=== PATIENT | male | born 1940 | race Caucasian/White ===

== ENCOUNTER 2023-01-28 04:14 | Inpatient (IN) | payer OTHER ==
[~2023-01-28] VITALS: Ht 165.1 cm; Wt 90.0 kg
[2023-01-28] MEDS ORDERED: SODIUM CHLORIDE 0.9% 1,000 ML IV ONE (04:30)
[2023-01-28 05:06] LABS: Basophils # (auto) 0 10 ^3/uL (0-0.2); Basophils % (auto) 0.1 % (0.0-2.0); Eosinophils # (auto) 0 10 ^3/uL (0-0.8); Eosinophils % (auto) 0.3 % (0.0-7.0); Hematocrit 40.6 % (41.0-53.0); Hemoglobin 13.6 g/dL (13.5-17.5); Lymphocytes % (auto) 10.9 % (10.0-50.0); Mean Corpuscular Hemoglobin 28.5 pg (28.0-32.0); Mean Corpuscular Hgb Conc. 33.5 g/dL (32.0-36.0); Monocytes # (auto) 0.6 10 ^3/uL (0-1.3); Monocytes % (auto) 6.1 % (0.0-12.0); Neutrophils # (auto) 7.4 10 ^3/uL (1.6-8.6); Neutrophils % (auto) 82.6 % (37.0-80.0); Nucleated Red Blood Cells % 0.1 %; Red Blood Cells 4.77 10^6/uL (4.5-5.90); Red Cell Distribution Width 18.5 % (11.8-14.3)
[2023-01-28 05:14] LABS: INR 1.14 (0.9-1.15); Partial Thromboplastin Time 36.7 SEC (24.5-34.5)
[2023-01-28] MEDS ORDERED: PANTOPRAZOLE 80 MG in SODIUM CHL 0.9% 100 ML IV ONE (05:15)
[2023-01-28] MEDS: OCTREOTIDE ACETATE 500 MCG in SODIUM CHL 0.9% 99 ML IV SCH ×2 (05:15→15:15)
[2023-01-28] MEDS ORDERED: PANTOPRAZOLE 40mg/50ML NS AE 50 ML IV ONE ×2 (05:15→11:14)
[2023-01-28] MEDS ORDERED: OCTREOTIDE ACETATE 100 MCG in SODIUM CHL 0.9% 50 ML IV ONE (05:15)
[2023-01-28 05:17] LABS: Albumin 3.1 g/dL (3.4-5.0); Calcium 8.7 mg/dL (8.5-10.1); Magnesium 2.7 mg/dL (1.6-2.6)
[2023-01-28 05:20] LABS: BUN/Creatinine Ratio 37.4 (10.0-20.0); Bilirubin, Total 1.6 mg/dL (0.2-1.0); Total Protein 6.6 g/dL (6.4-8.2)
[2023-01-28] MEDS ORDERED: levoFLOXacin 500MG 100 ML IV ONE (05:30)
[2023-01-28] MEDS ORDERED: PANTOPRAZOLE 40 MG/10 ML VIAL INJ IV ONE (05:45)
[2023-01-28] MEDS: NOREPINEPHRINE 8 MG/250ML KIT 250 ML IV SCH (05:45)
[2023-01-28] MEDS ORDERED: OCTREOTIDE ACETATE 500 MCG/ML VL ONE (05:45)
[2023-01-28] MEDS ORDERED: OCTREOTIDE ACETATE 100 MCG/ML VL ONE (05:45)
[2023-01-28 06:49] LABS: Lactic Acid w/Reflex 2.6 mmol/L (0.4-2.0)
[2023-01-28 07:40] VITALS: O2SAT 100
[2023-01-28 07:44] VITALS: PULSE 121; RESP 18; O2SAT 100
[2023-01-28] MEDS ORDERED: ONDANSETRON HCL 4 MG/2 ML VIAL IV PRN (09:45)
[2023-01-28] MEDS ORDERED: MORPHINE SULFATE INJ 2 MG/ml SYRG IV PRN (09:45)
[2023-01-28] MEDS ORDERED: NITROGLYCERIN 0.4 MG SL TAB SL PRN (09:45)
[2023-01-28] MEDS ORDERED: DOCUSATE SOD 100 MG CAP PO PRN (09:45)
[2023-01-28] MEDS ORDERED: FURO40TA4 PO (10:30)
[2023-01-28] MEDS ORDERED: [UNRECOGNIZED DRUG - CODE] PO (10:30)
[2023-01-28] MEDS ORDERED: FIN5T PO (10:30)
[2023-01-28] MEDS ORDERED: APIX2.5T PO (10:30)
[2023-01-28] MEDS ORDERED: ATOR10TA52 PO (10:30)
[2023-01-28] MEDS ORDERED: LISI20TA56 PO (10:30)
[2023-01-28] MEDS ORDERED: DOX2T PO (10:30)
[2023-01-28] MEDS: PANTOPRAZOLE 40mg/50ML NS AE 50 ML IV SCH ×3 (11:29→20:21)
[2023-01-28 12:57] LABS: Calcium 8.7 mg/dL (8.5-10.1)
[2023-01-28 13:01] LABS: BUN/Creatinine Ratio 38.3 (10.0-20.0)
[2023-01-28] MEDS ORDERED: CARBIDOPA LEVODOPA ENTACAPONE PO SCH (14:00)
[2023-01-28] MEDS: SODIUM CHLOR 0.9% PF (SALINE LOCK) 10ML VIAL/SYR IV SCH ×2 (14:02→22:12)
[2023-01-28 17:02] LABS: Urine Bacteria NONE SEEN /hpf (None Seen); Urine Blood 3+ /uL (Negative); Urine Specific Gravity 1.012 (1.001-1.035); Urine WBC 17 /hpf (0 - 3)
[2023-01-28] MEDS: SODIUM CHLORIDE 0.9% 1,000 ML IV SCH (17:26)
[2023-01-28] MEDS: TAMSULOSIN HYDROCHLORIDE 0.4 MG CAP PO SCH (18:16)
[2023-01-28] MEDS: CARBIDOPA W LEVODOPA CR 25/100mg TABLET PO SCH (22:27)
[2023-01-29] VITALS (7 sets, daily range): BP systolic 108–131; BP diastolic 55–67; PULSE 79–93; RESP 15–24; TEMP 97.5–98.9; O2SAT 95–100
[2023-01-29] MEDS ORDERED: OCTREOTIDE ACETATE 500 MCG/ML VL ONE (00:25)
[2023-01-29] MEDS: OCTREOTIDE ACETATE 500 MCG in SODIUM CHL 0.9% 99 ML IV SCH ×3 (00:37→23:33)
[2023-01-29] MEDS: PANTOPRAZOLE 40mg/50ML NS AE 50 ML IV SCH ×5 (01:20→23:36)
[2023-01-29] MEDS: SODIUM CHLORIDE 0.9% 1,000 ML IV SCH ×3 (03:29→23:36)
[2023-01-29] MEDS: NOREPINEPHRINE 8 MG/250ML KIT 250 ML IV SCH (04:45)
[2023-01-29 05:44] LABS: Basophils # (auto) 0 10 ^3/uL (0-0.2); Basophils % (auto) 0.3 % (0.0-2.0); Eosinophils # (auto) 0.1 10 ^3/uL (0-0.8); Eosinophils % (auto) 0.7 % (0.0-7.0); Hematocrit 38.7 % (41.0-53.0); Hemoglobin 12.9 g/dL (13.5-17.5); Lymphocytes % (auto) 11.5 % (10.0-50.0); Mean Corpuscular Hemoglobin 28.7 pg (28.0-32.0); Mean Corpuscular Hgb Conc. 33.4 g/dL (32.0-36.0); Mean Corpuscular Volume 85.8 fL (80.0-100.0); Monocytes # (auto) 0.8 10 ^3/uL (0-1.3); Monocytes % (auto) 9.3 % (0.0-12.0); Neutrophils # (auto) 7.1 10 ^3/uL (1.6-8.6); Neutrophils % (auto) 78.2 % (37.0-80.0); Nucleated Red Blood Cells % 0.1 %; Red Blood Cells 4.51 10^6/uL (4.5-5.90); Red Cell Distribution Width 18.5 % (11.8-14.3)
[2023-01-29] MEDS: CARBIDOPA W LEVODOPA CR 25/100mg TABLET PO SCH ×3 (06:00→22:00)
[2023-01-29] MEDS: SODIUM CHLOR 0.9% PF (SALINE LOCK) 10ML VIAL/SYR IV SCH ×3 (06:03→23:33)
[2023-01-29 06:05] LABS: Potassium 4.4 mmol/L (3.5-5.1)
[2023-01-29 06:16] LABS: Albumin 2.8 g/dL (3.4-5.0); BUN/Creatinine Ratio 34.9 (10.0-20.0); Bilirubin, Total 1.9 mg/dL (0.2-1.0); Calcium 8.4 mg/dL (8.5-10.1); Magnesium 2.5 mg/dL (1.6-2.6); Total Protein 6.1 g/dL (6.4-8.2)
[2023-01-29] MEDS: cefTRIAXone 1GM/50ML D5W 50 ML IV SCH (08:51)
[2023-01-29] MEDS: FINASTERIDE 5 MG TAB PO SCH (08:51)
[2023-01-29] MEDS: ATORVASTATIN 20 MG TAB PO SCH (08:52)
[2023-01-29] MEDS: TAMSULOSIN HYDROCHLORIDE 0.4 MG CAP PO SCH (18:22)
[2023-01-29] MEDS ORDERED: ZINC SULFATE 220mg CAP or TAB PO ONE (20:45)
[2023-01-29] MEDS ORDERED: CHOLECALCIFEROL (VITD3) 2,000 UNIT CAP/TAB PO ONE (20:45)
[2023-01-30] VITALS (7 sets, daily range): BP systolic 111–122; BP diastolic 63–74; PULSE 74–81; RESP 17–22; TEMP 97.1–98.8; O2SAT 94–98
[2023-01-30] MEDS: CARBIDOPA W LEVODOPA CR 25/100mg TABLET PO SCH ×3 (06:00→22:00)
[2023-01-30 06:07] LABS: Basophils # (auto) 0 10 ^3/uL (0-0.2); Basophils % (auto) 0.4 % (0.0-2.0); Eosinophils # (auto) 0.2 10 ^3/uL (0-0.8); Eosinophils % (auto) 2.6 % (0.0-7.0); Lymphocytes % (auto) 13.9 % (10.0-50.0); Mean Corpuscular Hemoglobin 28.1 pg (28.0-32.0); Mean Corpuscular Hgb Conc. 33.4 g/dL (32.0-36.0); Mean Corpuscular Volume 84.3 fL (80.0-100.0); Monocytes # (auto) 0.6 10 ^3/uL (0-1.3); Monocytes % (auto) 8.4 % (0.0-12.0); Neutrophils # (auto) 5.6 10 ^3/uL (1.6-8.6); Neutrophils % (auto) 74.7 % (37.0-80.0); Red Blood Cells 4.63 10^6/uL (4.5-5.90); Red Cell Distribution Width 18.2 % (11.8-14.3); White Blood Cell 7.5 10^3/uL (4.4-10.8)
[2023-01-30] MEDS: PANTOPRAZOLE 40mg/50ML NS AE 50 ML IV SCH (06:51)
[2023-01-30] MEDS: SODIUM CHLOR 0.9% PF (SALINE LOCK) 10ML VIAL/SYR IV SCH ×3 (06:51→22:45)
[2023-01-30] MEDS: OCTREOTIDE ACETATE 500 MCG in SODIUM CHL 0.9% 99 ML IV SCH (06:52)
[2023-01-30] MEDS: ZINC SULFATE 220mg CAP or TAB PO SCH (09:29)
[2023-01-30] MEDS: CHOLECALCIFEROL (VITD3) 2,000 UNIT CAP/TAB PO SCH (09:30)
[2023-01-30] MEDS: ATORVASTATIN 20 MG TAB PO SCH (09:30)
[2023-01-30] MEDS: cefTRIAXone 1GM/50ML D5W 50 ML IV SCH (09:32)
[2023-01-30] MEDS: SODIUM CHLORIDE 0.9% 1,000 ML IV SCH ×3 (09:32→23:04)
[2023-01-30] MEDS: FINASTERIDE 5 MG TAB PO SCH (09:32)
[2023-01-30 09:35] LABS: Potassium 4.1 mmol/L (3.5-5.1)
[2023-01-30 09:39] LABS: Calcium 7.9 mg/dL (8.5-10.1); Magnesium 2.1 mg/dL (1.6-2.6)
[2023-01-30 11:51] LABS: Hepatitis B Surface Antibody Negative (Negative)
[2023-01-30 12:14] LABS: Hepatitis A Total Antibody Positive (Negative)
[2023-01-30 12:48] LABS: Hepatitis C Antibody Negative (Negative)
[2023-01-30] MEDS: DexAMETHasone SOD PHOS 10MG/1ML VIAL INJ IV SCH (14:02)
[2023-01-30] MEDS: AZITHROMYCIN 500MG/ 250ML 250 ML IV SCH (14:02)
[2023-01-30] MEDS: ASCORBIC ACID 500 MG TAB PO SCH ×2 (14:03→22:45)
[2023-01-30] MEDS: PANTOPRAZOLE 40 MG/10 ML VIAL INJ IV SCH ×2 (14:50→22:45)
[2023-01-30] MEDS: TAMSULOSIN HYDROCHLORIDE 0.4 MG CAP PO SCH (18:14)
[2023-01-31] VITALS (7 sets, daily range): BP systolic 132–139; BP diastolic 80–88; PULSE 60–96; RESP 17–19; TEMP 97.4–98.2; O2SAT 88–100
[2023-01-31] MEDS: SODIUM CHLOR 0.9% PF (SALINE LOCK) 10ML VIAL/SYR IV SCH ×3 (06:04→23:13)
[2023-01-31 06:05] LABS: BUN/Creatinine Ratio 23.9 (10.0-20.0); Magnesium 1.8 mg/dL (1.6-2.6); Potassium 4.4 mmol/L (3.5-5.1)
[2023-01-31] MEDS: CARBIDOPA W LEVODOPA CR 25/100mg TABLET PO SCH ×3 (08:42→23:13)
[2023-01-31] MEDS: cefTRIAXone 1GM/50ML D5W 50 ML IV SCH (09:16)
[2023-01-31] MEDS: ASCORBIC ACID 500 MG TAB PO SCH ×2 (09:19→23:13)
[2023-01-31] MEDS: ATORVASTATIN 20 MG TAB PO SCH (09:19)
[2023-01-31] MEDS: CHOLECALCIFEROL (VITD3) 2,000 UNIT CAP/TAB PO SCH (09:19)
[2023-01-31] MEDS: ZINC SULFATE 220mg CAP or TAB PO SCH (09:19)
[2023-01-31] MEDS: FINASTERIDE 5 MG TAB PO SCH (09:20)
[2023-01-31] MEDS: DexAMETHasone SOD PHOS 10MG/1ML VIAL INJ IV SCH (09:20)
[2023-01-31] MEDS: PANTOPRAZOLE 40 MG/10 ML VIAL INJ IV SCH ×2 (09:20→23:12)
[2023-01-31] MEDS: AZITHROMYCIN 500MG/ 250ML 250 ML IV SCH (10:12)
[2023-01-31] MEDS: SODIUM CHLORIDE 0.9% 1,000 ML IV SCH (17:56)
[2023-01-31] MEDS: TAMSULOSIN HYDROCHLORIDE 0.4 MG CAP PO SCH (17:56)
[2023-02-01] VITALS (7 sets, daily range): BP systolic 120–138; BP diastolic 72–85; PULSE 75–89; RESP 16–20; TEMP 97.5–98.4; O2SAT 93–99
[2023-02-01 05:39] LABS: Basophils # (auto) 0 10 ^3/uL (0-0.2); Eosinophils # (auto) 0 10 ^3/uL (0-0.8); Hematocrit 37.7 % (41.0-53.0); Lymphocytes # (auto) 1.1 10 ^3/uL (0.4-5.4); Lymphocytes % (auto) 10.3 % (10.0-50.0); Mean Corpuscular Hgb Conc. 34.3 g/dL (32.0-36.0); Mean Corpuscular Volume 84.4 fL (80.0-100.0); Monocytes # (auto) 0.6 10 ^3/uL (0-1.3); Monocytes % (auto) 5.4 % (0.0-12.0); Neutrophils # (auto) 9.1 10 ^3/uL (1.6-8.6); Neutrophils % (auto) 84.3 % (37.0-80.0); Red Blood Cells 4.47 10^6/uL (4.5-5.90); Red Cell Distribution Width 17.9 % (11.8-14.3); White Blood Cell 10.8 10^3/uL (4.4-10.8)
[2023-02-01 05:54] LABS: Calcium 7.8 mg/dL (8.5-10.1); Potassium 4.2 mmol/L (3.5-5.1)
[2023-02-01 05:56] LABS: BUN/Creatinine Ratio 22.9 (10.0-20.0)
[2023-02-01] MEDS: CARBIDOPA W LEVODOPA CR 25/100mg TABLET PO SCH ×3 (05:57→22:15)
[2023-02-01] MEDS: SODIUM CHLOR 0.9% PF (SALINE LOCK) 10ML VIAL/SYR IV SCH ×3 (05:58→22:15)
[2023-02-01] MEDS: cefTRIAXone 1GM/50ML D5W 50 ML IV SCH (08:30)
[2023-02-01] MEDS: FINASTERIDE 5 MG TAB PO SCH (09:23)
[2023-02-01] MEDS: DexAMETHasone SOD PHOS 10MG/1ML VIAL INJ IV SCH (09:23)
[2023-02-01] MEDS: PANTOPRAZOLE 40 MG/10 ML VIAL INJ IV SCH ×2 (09:23→22:14)
[2023-02-01] MEDS: ZINC SULFATE 220mg CAP or TAB PO SCH (09:24)
[2023-02-01] MEDS: ATORVASTATIN 20 MG TAB PO SCH (09:24)
[2023-02-01] MEDS: DOCUSATE SOD 100 MG CAP PO SCH ×2 (09:24→22:14)
[2023-02-01] MEDS: CHOLECALCIFEROL (VITD3) 2,000 UNIT CAP/TAB PO SCH (09:24)
[2023-02-01] MEDS: ASCORBIC ACID 500 MG TAB PO SCH ×2 (09:24→22:15)
[2023-02-01] MEDS: AZITHROMYCIN 500MG/ 250ML 250 ML IV SCH (10:20)
[2023-02-01] MEDS: SODIUM CHLORIDE 0.9% 1,000 ML IV SCH (11:57)
[2023-02-01] MEDS: TAMSULOSIN HYDROCHLORIDE 0.4 MG CAP PO SCH (17:48)
[2023-02-01] MEDS: LACTULOSE 20Gm/30ML SOLN PO PRN (22:14)
[2023-02-02] VITALS (8 sets, daily range): BP systolic 110–135; BP diastolic 61–90; PULSE 59–86; RESP 14–20; TEMP 97.2–98.6; O2SAT 93–97
[2023-02-02] MEDS: SODIUM CHLORIDE 0.9% 1,000 ML IV SCH ×2 (04:26→22:42)
[2023-02-02 05:38] LABS: BUN/Creatinine Ratio 21.2 (10.0-20.0); Calcium 7.7 mg/dL (8.5-10.1); Potassium 4.5 mmol/L (3.5-5.1)
[2023-02-02] MEDS: CARBIDOPA W LEVODOPA CR 25/100mg TABLET PO SCH ×3 (06:00→22:36)
[2023-02-02] MEDS: SODIUM CHLOR 0.9% PF (SALINE LOCK) 10ML VIAL/SYR IV SCH ×3 (06:12→22:00)
[2023-02-02] MEDS: cefTRIAXone 1GM/50ML D5W 50 ML IV SCH (08:23)
[2023-02-02] MEDS: DexAMETHasone SOD PHOS 10MG/1ML VIAL INJ IV SCH (09:50)
[2023-02-02] MEDS: PANTOPRAZOLE 40 MG/10 ML VIAL INJ IV SCH ×2 (09:50→22:35)
[2023-02-02] MEDS: ATORVASTATIN 20 MG TAB PO SCH (09:51)
[2023-02-02] MEDS: CHOLECALCIFEROL (VITD3) 2,000 UNIT CAP/TAB PO SCH (09:51)
[2023-02-02] MEDS: DOCUSATE SOD 100 MG CAP PO SCH ×2 (09:51→22:35)
[2023-02-02] MEDS: FINASTERIDE 5 MG TAB PO SCH (09:51)
[2023-02-02] MEDS: ASCORBIC ACID 500 MG TAB PO SCH ×2 (09:51→22:36)
[2023-02-02] MEDS: AZITHROMYCIN 500MG/ 250ML 250 ML IV SCH (09:51)
[2023-02-02] MEDS: ZINC SULFATE 220mg CAP or TAB PO SCH (09:51)
[2023-02-02] MEDS: TAMSULOSIN HYDROCHLORIDE 0.4 MG CAP PO SCH (18:11)
[2023-02-02] MEDS: LACTULOSE 20Gm/30ML SOLN PO PRN (22:35)
[2023-02-03] VITALS (7 sets, daily range): BP systolic 121–145; BP diastolic 68–90; PULSE 76–96; RESP 15–17; TEMP 97.5–98; O2SAT 93–100
[2023-02-03] MEDS: CARBIDOPA W LEVODOPA CR 25/100mg TABLET PO SCH ×3 (06:00→22:17)
[2023-02-03] MEDS: SODIUM CHLOR 0.9% PF (SALINE LOCK) 10ML VIAL/SYR IV SCH ×3 (06:00→22:02)
[2023-02-03] MEDS: cefTRIAXone 1GM/50ML D5W 50 ML IV SCH (09:26)
[2023-02-03] MEDS: ATORVASTATIN 20 MG TAB PO SCH (09:26)
[2023-02-03] MEDS: DOCUSATE SOD 100 MG CAP PO SCH ×2 (09:26→22:02)
[2023-02-03] MEDS: CHOLECALCIFEROL (VITD3) 2,000 UNIT CAP/TAB PO SCH (09:26)
[2023-02-03] MEDS: FINASTERIDE 5 MG TAB PO SCH (09:27)
[2023-02-03] MEDS: PANTOPRAZOLE 40 MG/10 ML VIAL INJ IV SCH ×2 (09:27→22:02)
[2023-02-03] MEDS: ZINC SULFATE 220mg CAP or TAB PO SCH (09:27)
[2023-02-03] MEDS: DexAMETHasone SOD PHOS 10MG/1ML VIAL INJ IV SCH (09:27)
[2023-02-03] MEDS: ASCORBIC ACID 500 MG TAB PO SCH ×2 (09:27→22:02)
[2023-02-03] MEDS: AZITHROMYCIN 500MG/ 250ML 250 ML IV SCH (10:30)
[2023-02-03] MEDS: TAMSULOSIN HYDROCHLORIDE 0.4 MG CAP PO SCH (17:27)
[2023-02-04] VITALS (7 sets, daily range): BP systolic 98–147; BP diastolic 56–88; PULSE 78–81; RESP 5–18; TEMP 97.8–98.4; O2SAT 92–99
[2023-02-04 05:25] LABS: Basophils # (auto) 0.1 10 ^3/uL (0-0.2); Basophils % (auto) 0.7 % (0.0-2.0); Eosinophils # (auto) 0 10 ^3/uL (0-0.8); Eosinophils % (auto) 0.2 % (0.0-7.0); Hematocrit 40.8 % (41.0-53.0); Hemoglobin 13.4 g/dL (13.5-17.5); Lymphocytes # (auto) 1.7 10 ^3/uL (0.4-5.4); Mean Corpuscular Hemoglobin 28.3 pg (28.0-32.0); Mean Corpuscular Hgb Conc. 32.9 g/dL (32.0-36.0); Mean Corpuscular Volume 85.8 fL (80.0-100.0); Monocytes # (auto) 0.6 10 ^3/uL (0-1.3); Monocytes % (auto) 4.9 % (0.0-12.0); Neutrophils # (auto) 10.6 10 ^3/uL (1.6-8.6); Neutrophils % (auto) 81.2 % (37.0-80.0); Nucleated Red Blood Cells % 0.5 %; Red Blood Cells 4.75 10^6/uL (4.5-5.90); Red Cell Distribution Width 18.2 % (11.8-14.3); White Blood Cell 13.1 10^3/uL (4.4-10.8)
[2023-02-04] MEDS: CARBIDOPA W LEVODOPA CR 25/100mg TABLET PO SCH ×3 (05:40→21:43)
[2023-02-04] MEDS: SODIUM CHLOR 0.9% PF (SALINE LOCK) 10ML VIAL/SYR IV SCH ×3 (05:40→21:43)
[2023-02-04 08:17] LABS: BUN/Creatinine Ratio 23.3 (10.0-20.0); Calcium 7.8 mg/dL (8.5-10.1); Potassium 3.9 mmol/L (3.5-5.1)
[2023-02-04] MEDS: cefTRIAXone 1GM/50ML D5W 50 ML IV SCH (09:31)
[2023-02-04] MEDS: DOCUSATE SOD 100 MG CAP PO SCH ×2 (09:33→21:43)
[2023-02-04] MEDS: ASCORBIC ACID 500 MG TAB PO SCH ×2 (09:33→21:42)
[2023-02-04] MEDS: ATORVASTATIN 20 MG TAB PO SCH (09:34)
[2023-02-04] MEDS: CHOLECALCIFEROL (VITD3) 2,000 UNIT CAP/TAB PO SCH (09:34)
[2023-02-04] MEDS: ZINC SULFATE 220mg CAP or TAB PO SCH (09:36)
[2023-02-04] MEDS: DexAMETHasone SOD PHOS 10MG/1ML VIAL INJ IV SCH (09:36)
[2023-02-04] MEDS: PANTOPRAZOLE 40 MG/10 ML VIAL INJ IV SCH ×2 (09:36→21:43)
[2023-02-04] MEDS: FINASTERIDE 5 MG TAB PO SCH (09:36)
[2023-02-04] MEDS: AZITHROMYCIN 500MG/ 250ML 250 ML IV SCH (10:10)
[2023-02-04] MEDS: TAMSULOSIN HYDROCHLORIDE 0.4 MG CAP PO SCH (17:55)
[2023-02-05] VITALS (7 sets, daily range): BP systolic 127–145; BP diastolic 69–92; PULSE 80–81; RESP 16–20; TEMP 36.9; O2SAT 93–98
[2023-02-05] MEDS: SODIUM CHLOR 0.9% PF (SALINE LOCK) 10ML VIAL/SYR IV SCH ×3 (05:47→21:01)
[2023-02-05] MEDS: CARBIDOPA W LEVODOPA CR 25/100mg TABLET PO SCH ×3 (05:47→21:00)
[2023-02-05] MEDS: PANTOPRAZOLE 40 MG/10 ML VIAL INJ IV SCH ×2 (10:38→21:00)
[2023-02-05] MEDS: DexAMETHasone SOD PHOS 10MG/1ML VIAL INJ IV SCH (10:38)
[2023-02-05] MEDS: cefTRIAXone 1GM/50ML D5W 50 ML IV SCH (10:38)
[2023-02-05] MEDS: DOCUSATE SOD 100 MG CAP PO SCH ×2 (10:39→21:01)
[2023-02-05] MEDS: ZINC SULFATE 220mg CAP or TAB PO SCH (10:39)
[2023-02-05] MEDS: ASCORBIC ACID 500 MG TAB PO SCH ×2 (10:39→21:01)
[2023-02-05] MEDS: FINASTERIDE 5 MG TAB PO SCH (10:39)
[2023-02-05] MEDS: ATORVASTATIN 20 MG TAB PO SCH (10:39)
[2023-02-05] MEDS: CHOLECALCIFEROL (VITD3) 2,000 UNIT CAP/TAB PO SCH (10:39)
[2023-02-05] MEDS: AZITHROMYCIN 500MG/ 250ML 250 ML IV SCH (10:39)
[2023-02-05] MEDS: TAMSULOSIN HYDROCHLORIDE 0.4 MG CAP PO SCH (17:55)
[2023-02-06] VITALS (8 sets, daily range): BP systolic 119–138; BP diastolic 64–90; PULSE 78–83; RESP 16–80; TEMP 36.4–36.9; O2SAT 20–99
[2023-02-06] MEDS: CARBIDOPA W LEVODOPA CR 25/100mg TABLET PO SCH ×3 (05:47→21:38)
[2023-02-06] MEDS: SODIUM CHLOR 0.9% PF (SALINE LOCK) 10ML VIAL/SYR IV SCH ×3 (05:47→21:39)
[2023-02-06] MEDS: CHOLECALCIFEROL (VITD3) 2,000 UNIT CAP/TAB PO SCH (09:36)
[2023-02-06] MEDS: DOCUSATE SOD 100 MG CAP PO SCH ×2 (09:36→21:37)
[2023-02-06] MEDS: PANTOPRAZOLE 40 MG/10 ML VIAL INJ IV SCH ×2 (09:36→21:37)
[2023-02-06] MEDS: ZINC SULFATE 220mg CAP or TAB PO SCH (09:36)
[2023-02-06] MEDS: ATORVASTATIN 20 MG TAB PO SCH (09:37)
[2023-02-06] MEDS: FINASTERIDE 5 MG TAB PO SCH (09:37)
[2023-02-06] MEDS: ASCORBIC ACID 500 MG TAB PO SCH ×2 (09:37→21:38)
[2023-02-06] MEDS: TAMSULOSIN HYDROCHLORIDE 0.4 MG CAP PO SCH (18:30)
[2023-02-07 05:00] VITALS: BP 107/58; PULSE 76; RESP 16; TEMP 97.7; O2SAT 98
[2023-02-07 05:31] LABS: BUN/Creatinine Ratio 29.7 (10.0-20.0); Potassium 4.2 mmol/L (3.5-5.1)
[2023-02-07 05:59] LABS: Basophils # (auto) 0 10 ^3/uL (0-0.2); Basophils % (auto) 0.2 % (0.0-2.0); Eosinophils # (auto) 0.2 10 ^3/uL (0-0.8); Eosinophils % (auto) 1.5 % (0.0-7.0); Hematocrit 38.7 % (41.0-53.0); Hemoglobin 13.1 g/dL (13.5-17.5); Lymphocytes # (auto) 1.8 10 ^3/uL (0.4-5.4); Lymphocytes % (auto) 16.9 % (10.0-50.0); Mean Corpuscular Hemoglobin 28.6 pg (28.0-32.0); Mean Corpuscular Hgb Conc. 33.8 g/dL (32.0-36.0); Mean Corpuscular Volume 84.6 fL (80.0-100.0); Monocytes # (auto) 0.8 10 ^3/uL (0-1.3); Monocytes % (auto) 7.6 % (0.0-12.0); Neutrophils # (auto) 7.8 10 ^3/uL (1.6-8.6); Neutrophils % (auto) 73.8 % (37.0-80.0); Nucleated Red Blood Cells % 0.1 %; Red Blood Cells 4.58 10^6/uL (4.5-5.90); Red Cell Distribution Width 19.1 % (11.8-14.3); White Blood Cell 10.6 10^3/uL (4.4-10.8)
[2023-02-07] MEDS: SODIUM CHLOR 0.9% PF (SALINE LOCK) 10ML VIAL/SYR IV SCH (06:25)
[2023-02-07] MEDS: CARBIDOPA W LEVODOPA CR 25/100mg TABLET PO SCH (06:25)
[2023-02-07 07:30] VITALS: TEMP 36.5
[2023-02-07 08:00] VITALS: PULSE 79; PULSE 80; RESP 17; O2SAT 96
[2023-02-07 08:30] VITALS: BP 105/68; PULSE 79; RESP 17; TEMP 97.6; O2SAT 96
[2023-02-07] MEDS: CHOLECALCIFEROL (VITD3) 2,000 UNIT CAP/TAB PO SCH (09:46)
[2023-02-07] MEDS: ASCORBIC ACID 500 MG TAB PO SCH (09:46)
[2023-02-07] MEDS: ZINC SULFATE 220mg CAP or TAB PO SCH (09:46)
[2023-02-07] MEDS: DOCUSATE SOD 100 MG CAP PO SCH (09:46)
[2023-02-07] MEDS: FINASTERIDE 5 MG TAB PO SCH (09:46)
[2023-02-07] MEDS: PANTOPRAZOLE 40 MG/10 ML VIAL INJ IV SCH (09:47)
[2023-02-07] MEDS: ATORVASTATIN 20 MG TAB PO SCH (09:47)
== END 2023-02-07 14:00 | DRG 177 ==
LOC: EDBD 04:14 → ER 04:14 → TELE 10:30 → TELE-EAST 01-29 03:10
PROVIDERS: ADMIT Internal Medicine Geriatric Medicine; ATTEND Internal Medicine Geriatric Medicine
DX: U07.1 COVID-19 (principal); J12.82 Pneumonia due to coronavirus disease 2019; J96.00 Acute respiratory failure, unspecified whether with hypoxia or hypercapnia; N17.9 Acute kidney failure, unspecified; N39.0 Urinary tract infection, site not specified; E87.1 Hypo-osmolality and hyponatremia; J98.11 Atelectasis; G20 Parkinson's disease; I95.9 Hypotension, unspecified; I48.91 Unspecified atrial fibrillation; E78.5 Hyperlipidemia, unspecified; K59.00 Constipation, unspecified; I11.0 Hypertensive heart disease with heart failure; I50.9 Heart failure, unspecified; Z79.01 Long term (current) use of anticoagulants; Z79.899 Other long term (current) drug therapy; Z88.0 Allergy status to penicillin; Z95.1 Presence of aortocoronary bypass graft
CPT/HCPCS: 36415; 71045; 80048; 80053; 81001; 83605; 83735; 83880; 84443; 84484; 85025; 85379; 85610; 85730; 86704; 86706; 86708; 86803; 86850; 86900; 86901; 87040; 87081; 87086; 87340; 87426; 93005; 96361; 96365; 96366; 96368; 97110; 97116; 97163; 97530; C9113; G0378; J0696; J1100; J1956